=== PATIENT | female | born 1940 | race Caucasian/White ===

== ENCOUNTER → 2017-02-07 | Outpatient (CLI) | payer MEDICARE ==
[~2017-02-07] MED LIST: ACETAMINOPHEN650 M1 PO; ADVAIR 250-501 EAC1 INH; ADVAIR 250-501 EAC1 XX; ASPIRIN PO; ASPIRIN81 MG PO; ATENOLOL PO; ATENOLOL50 MG PO; CALCIUM + D 6001 TA1 PO; CALCIUM 500 + D1 TAB PO; CALCIUM PO; CENTRUM PO; CETIRIZINE HCL10 MG PO; DYAZIDE 37.5/251 CAP PO; FISH OIL 1,0001 CAP PO; FISH OIL PO; FOSAMAX PO; K-DUR20 ME1 PO; LASIX20 MG PO; LISINOPRIL10 MG PO; MULTIVITAMIN1 UDCAP PO; OMNICEF300 M1 PO; PLAVIX PO; POTASSIUM99 M1 PO; PREDNISONE PO; VIT E PO
--- NOTE | ~2017-02-07 | US5 ---
[facility] A Service of [facility] RADIOLOGY TEXT RESULTS PATIENT: SANGEETHA HIGGINS SCN LOCATION: [facility] : 44 UNIT #: [id number] AGE: [address]: GAURANG SALDAÑA MD SEX: F ORDER DR: [id number] [facility] [address] [place], [place] [address] [id number] MR#: [id number] Acc #: [id number] NAME: SANGEETHA HIGGINS : 1940 SEX: F STUDY DATE/TIME: 02/07/2017 10:38 UNIT: [facility] ROOM: STUDY DESCRIPTION: US Abdominal Complete Attending Physician: Gaurang Saldaña M.D. Referring Physician: Gaurang Saldaña M.D. Ordering Physician: Gaurang Saldaña M.D. Primary Care Physician: Gaurang Saldaña M.D. MEDICAL IMAGING REPORT This report is preliminary unless electronic signature is present EXAM Abdominal ultrasound INDICATION Elevated liver enzyme levels. PROCEDURE Fuentes-scale and Doppler imaging of the abdomen. COMPARISON None. FINDINGS Visualized portions abdominal aorta and inferior vena cava unremarkable. Visualized portions of the pancreas are unremarkable. Liver measures 13.9 cm. Common duct measures 5 mm. Right kidney measures 8.4 cm. Cortical thickness is 8 mm. Left kidney measures 8.2 cm. Cortical thickness is 6 mm. No hydronephrosis. Spleen measures 9.2 cm. Unremarkable gallbladder. IMPRESSION Bilateral renal cortical thinning probably representing changes of chronic renal disease. No acute findings. No finding to explain the patient's elevated liver enzyme levels. Dictated by... Erasom Lopez M.D. THIS IS AN ELECTRONICALLY VERIFIED REPORT Erasmo Lopez M.D. at 02/08/2017 2:17 PM EED/mjs [facility] A Service [facility] RADIOLOGY TEXT RESULTS PATIENT: SANGEETHA HIGGINS SCN LOCATION: [facility] : 44 UNIT #: [id number] AGE: [address]: GAURANG SALDAÑA MD SEX: F ORDER DR: TD: 02/07/2017 12:18 JOB #: [id number] MEDICAL IMAGING REPORT Page 1 of 1 COPY
== END | disposition home or self-care (01) ==
LOC: CGUS 10:15
DX: R79.89 Other specified abnormal findings of blood chemistry (principal); N28.89 Other specified disorders of kidney and ureter
CPT/HCPCS: 76700